=== PATIENT | female | born 1960 | race Caucasian/White ===

== ENCOUNTER 2017-10-13 05:43 | Day surgery (SDC) | payer BC ==
[2017-10-13] MEDS ORDERED: CEFAZOLIN 1 GM/NS 50 ML X 1 IVPB (06:30)
[2017-10-13] MEDS ORDERED: BUPIVACAINE 0.5% (SDV) 30 ML INJ (06:54)
[2017-10-13] MEDS ORDERED: POVIDONE IODINE 10% 28.4 GM OINT (06:55)
[2017-10-13] MEDS ORDERED: DEXAMETHASONE 4 MG/ML 1 ML INJ (06:55)
[2017-10-13] MEDS ORDERED: METOCLOPRAMIDE 10 MG INJ (07:31)
[2017-10-13] MEDS ORDERED: MEPERIDINE 100 MG INJ (07:31)
[2017-10-13] MEDS ORDERED: ONDANSETRON 4 MG INJ (07:31)
[2017-10-13] MEDS ORDERED: PROPOFOL 20 ML (07:31)
[2017-10-13] MEDS ORDERED: LIDOCAINE 2% (SDV) 5 ML INJ (07:31)
[2017-10-13] MEDS ORDERED: CEFAZOLIN 1 GM INJ (07:37)
[2017-10-13] MEDS ORDERED: LIDOCAINE 1% (MPF) 30 ML INJ (07:56)
[2017-10-13] MEDS: LIDOCAINE 1% (MPF) 30 ML INJ INJ (08:00)
[2017-10-13] MEDS ORDERED: ATROPINE 1 MG/10 ML SYRINGE (08:21)
[2017-10-13] MEDS: BUPIVACAINE 0.5% (MPF) 30 ML INJ INJ (08:35)
[2017-10-13] MEDS: DEXAMETHASONE 4 MG/ML 1 ML INJ INJ (08:35)
[2017-10-13] MEDS ORDERED: MEPERIDINE 25 MG INJ IV (09:00)
[2017-10-13] MEDS ORDERED: METOCLOPRAMIDE 10 MG INJ IV (09:00)
[2017-10-13] MEDS ORDERED: MIDAZOLAM 1 MG/ML 2 ML INJ IV (09:00)
[2017-10-13] MEDS ORDERED: LABETALOL HCL 20MG INJ IV (09:00)
[2017-10-13] MEDS ORDERED: FENTAnyl 50 MCG/ML VIAL IV ×3 (09:00)
[2017-10-13] MEDS ORDERED: DIPHENHYDRAMINE 50 MG INJ IV (09:00)
[2017-10-13] MEDS ORDERED: ONDANSETRON 4 MG INJ IV (09:00)
[2017-10-13] MEDS ORDERED: EPHEDrine SULFATE 50 MG/5 ML SYG IV (09:00)
[2017-10-13] MEDS ORDERED: hydrALAzine 20 MG INJ IV (09:00)
[2017-10-13] MEDS ORDERED: OXYCODONE/ACETAMINOPHEN (5/325) TAB PO ×2 (09:00)
== END 2017-10-13 10:10 | disposition home or self-care (01) ==
LOC: SDS 05:43
DX: M20.41 Other hammer toe(s) (acquired), right foot (principal)
CPT/HCPCS: 28285; 71045; 88304; 88311; 93005